=== PATIENT | female | born 1960 | race Caucasian/White ===

== ENCOUNTER 2018-11-17 06:19 | Day surgery (SDC) | END 2018-11-17 10:39 | disposition home or self-care (01) ==

== ENCOUNTER 2019-02-13 05:26 | Day surgery (SDC) | payer OTHER ==
[2019-02-12 11:38] VITALS: Ht 160 cm; Wt 69.3 kg
--- NOTE | 2019-02-12 14:34 | PREOPHP ---
DATE OF ADMISSION: 02/13/2019 HISTORY OF PRESENT ILLNESS: This 58-year-old patient is admitted for elective cataract surgery of th e right eye. The patient has had progressive deterioration in both eyes over the last years' time an d 3 months ago underwent cataract surgery of the left eye with excellent visual result. The patient' s systemic history is positive for insulin-dependent diabetes mellitus for the past 29 years, systemi c hypertension, and hypercholesterolemia. CURRENT MEDICATIONS INCLUDE: 1. Humalog and Lantus insulin. 2. Gabapentin. 3. Lisinopril. 4. Gemfibrozil. 5. Amlodipine. 6. Atorvastatin. ALLERGIES: PATIENT IS ALLERGIC TO LATEX, but no medication. PHYSICAL EXAMINATION: The visual acuity with correction is 20/30 in the right eye and 20/80 in the l eft eye. Slit lamp examination reveals an anterior cortical nuclear sclerotic and posterior subcapsu lar cataract in the right eye. The left eye has a posterior chamber intraocular lens in appropriate position. Applanation tonometry is 16 mmHg. Examination of the retina reveals the presence of backg round diabetic retinopathy, but no diabetic neovascularization present. DIAGNOSIS: Posterior subcapsular cataract, right eye. PLAN: Cataract extraction with lens implant, right eye. The risks and alternatives to the surgery a s well as the potential flare up of the diabetic retinopathy have been discussed with the patient and patient has opted to proceed with surgery in hopes of improving visual acuity leading to greater alee lity to perform activities of daily living. Dictated By: TOÑITO BREWSTER/SANDHYA Conf#: [id number] DID#: [id number]
[~2019-02-13] VITALS: Ht 160 cm; Wt 69.3 kg
[2019-02-13] VITALS (9 sets, daily range): BP systolic 120–151; BP diastolic 61–72; PULSE 80–86; RESP 11–20
[~2019-02-13 05:26] MED LIST: ATOR10TA65 PO; FER325 PO; GABA-526 PO; GEMF600T8 PO; LANT3I SC; LISI-471 PO
[2019-02-13] MEDS ORDERED: TROPICAMIDE 1% 15 ML OPH OPER SCH (06:00)
[2019-02-13] MEDS ORDERED: SOD CHLORIDE 0.9% 1,000 ML IV SCH (06:00)
[2019-02-13] MEDS ORDERED: CYCLOPENTOLATE/PHENYLEPH 2 ML OPH OPER SCH (06:00)
[2019-02-13] MEDS ORDERED: MOXIFLOXACIN 0.5% 3 ML OPH OPER SCH (06:00)
[2019-02-13] MEDS ORDERED: DICLOFENAC 0.1% 2.5 ML OPH OPER SCH (06:00)
[2019-02-13] MEDS ORDERED: CEFAZOLIN 1 GM INJ ONE (06:48)
[2019-02-13] MEDS ORDERED: DEXAMETHASONE 4 MG/ML 1 ML INJ ONE (06:49)
[2019-02-13] MEDS ORDERED: LIDOCAINE 4% (MPF) 5 ML INJ ONE ×2 (06:49→08:23)
[2019-02-13] MEDS ORDERED: CARBACHOL 0.01% 1.5 ML OPH INJ ONE (06:49)
[2019-02-13] MEDS ORDERED: TETRACAINE 0.5% 4 ML OPH ONE (06:49)
[2019-02-13] MEDS ORDERED: GENTAMICIN 80 MG INJ ONE (06:49)
[2019-02-13] MEDS ORDERED: EPINEPHrine 1 MG INJ ONE (06:50)
[2019-02-13] MEDS ORDERED: INSU100C SQ (07:04)
[2019-02-13] MEDS ORDERED: AMLO-147 PO (07:04)
[2019-02-13] MEDS ORDERED: GLIP-160 PO (07:04)
--- NOTE | 2019-02-13 07:17 | PREAC ---
Date/Time of Note Date/Time of Note DATE: 02/13/19 TIME: 07:17 Anesthesia Eval and Record Evaluation Time Pre-Procedure Interview DATE: 02/13/19 TIME: 07:17 Age 58 Sex female NPO: 8 hrs Preoperative diagnosis Right eye cataract Planned procedure Cataract extraction with IOL implant Past Medical History Past Medical History: Includes Cardio: HTN, Dyslipidemia Endo: Diabetes Surgery & Anesthesia Issues No known issue Meds Anticoagulation: No Beta Christoph within 24 hr: No Reason Beta Christoph not given: Pt. not on B-Christoph Reported Medications Glipizide XL* (Glipizide XL*) 5 Mg Tabsr, 10 MG PO DAILY, TAB 02/13/19 Insulin Lispro (Humalog) 100 Unit/1 Ml Cartridge, 6 UNIT SQ AC MEALS, EA 02/13/19 Amlodipine Besylate* (Amlodipine Besylate*) 10 Mg Tablet, 10 MG PO DAILY, #30 TAB 02/13/19 Atorvastatin Calcium (Atorvastatin Calcium) 10 Mg Tablet, 10 MG PO QHS, #30 TAB 11/17/18 Ferrous Sulfate* (Ferrous Sulfate*) 325 Mg Tabec, 325 MG PO DAILY, TAB 11/17/18 Gemfibrozil* (Gemfibrozil*) 600 Mg Tablet, 600 MG PO BID, TAB 11/17/18 Insulin Glargine* (Lantus*) 100 Unit/Ml Soln, 30 UNIT SC QHS, #1 VIAL 11/17/18 Gabapentin* (Gabapentin*) 600 Mg Tablet, 600 MG PO BID, #60 TAB 11/17/18 Lisinopril* (Lisinopril*) 20 Mg Tablet, 20 MG PO DAILY, #30 TAB 11/17/18 Current Medications Diclofenac Sodium (Voltaren 0.1%) 1 drop Q5 MIN X 3 OPER Last administered on 02/13/19at 06:12; Admin Dose 1 DROP; Start 02/13/19 at 06:00 Tropicamide (Mydriacyl 1%) 1 drop Q5 MIN X3 OPER Last administered on 02/13/19at 06:12; Admin Dose 1 DROP; Start 02/13/19 at 06:00 Moxifloxacin HCl (Vigamox) 1 drop Q5 MIN X 3 OPER Last administered on 02/13/19at 06:12; Admin Dose 1 DROP; Start 02/13/19 at 06:00 Cyclopentolate/ Phenylephrine (Cyclomydril Oph 2 ml) 1 drop Q5 MIN X 3 OPER Last administered on 02/13/19at 06:13; Admin Dose 1 DROP; Start 02/13/19 at 06:00 Sodium Chloride 1,000 ml @ 25 mls/hr Q24H IV Last administered on 02/13/19at 06:12; Admin Dose 25 MLS/HR; Start 02/13/19 at 06:00 Meds reviewed: Yes Allergies Coded Allergies: latex (Verified Allergy, Severe, LIPS, EARS, THROAT SWELLING, 11/17/18) Allergies Reviewed: Yes Labs/Studies Labs Reviewed: Reviewed by anesthesiologist test: N/A Pre-procedure Exam Last vitals Vital Signs Date Temp Pulse Resp B/P (MAP) Pulse Ox O2 O2 Flow FiO2 Time Delivery Rate 02/13/19 98.1 86 20 151/72 98 Room Air 06:22 (98) Airway: Adequate mouth opening Mallampati: Mallampati I Teeth: Normal Lung: Normal Heart: Normal ASA Physical Status ASA physical status: 3 Emergency: None Planned Anesthetic General/MAC: MAC Planned Pain Management Parenteral pain med Pre-operative Attestations Prior to commencing anesthesia and surgery, the patient was re-evaluated, there was verification of: *The patient's identity *The results of appropriate recent lab work and preoperative vital signs *The above evaluation not changing prior to induction *Anesthetic plan, risk benefits, alternative and complications discussed with patient/family; questions answered; patient/family understands, accepts and wishes to proceed. HONEY WEBER MD Feb 13, 2019 07:17
[2019-02-13] MEDS ORDERED: PROPOFOL 20 ML ONE (07:32)
[2019-02-13] MEDS ORDERED: LABETALOL HCL 20MG INJ ONE (08:06)
[2019-02-13] MEDS ORDERED: NA HYALURONATE/CHONDROITIN 0.5 ML SYG RIGHT EYE ONE (08:11)
[2019-02-13] MEDS ORDERED: NA HYALURONATE/CHONDROITIN 0.5 ML SYG ONE (08:23)
--- NOTE | 2019-02-13 08:24 | SIPON ---
Date/Time of Note Date/Time of Note DATE: 02/13/19 TIME: 08:23 Operative Report Preoperative Diagnosis Posterior subcapsular cataract od Postoperative Diagnosis same Operation/Procedure Performed cataract extraction with lens implant od Surgeon Toñito Sellers corporate administrative assistant none Anesthesia: MAC Estimated blood loss: none Transfusion Required none Specimen none Grafts/Implants posterior chamber lens implant Complications none TOÑITO SELLERS MD Feb 13, 2019 08:24
[2019-02-13] MEDS ORDERED: OXYCODONE/ACETAMINOPHEN (5/325) TAB PO PRN ×2 (08:30)
[2019-02-13] MEDS ORDERED: EPHEDrine SULFATE 50 MG/5 ML SYG IV PRN (08:30)
[2019-02-13] MEDS ORDERED: LABETALOL HCL 20MG INJ IV PRN (08:30)
[2019-02-13] MEDS ORDERED: METOCLOPRAMIDE 10 MG INJ IV PRN (08:30)
[2019-02-13] MEDS ORDERED: DIPHENHYDRAMINE 50 MG INJ IV PRN (08:30)
[2019-02-13] MEDS ORDERED: ONDANSETRON 4 MG INJ IV PRN (08:30)
[2019-02-13] MEDS ORDERED: hydrALAzine 20 MG INJ IV PRN (08:30)
[2019-02-13] MEDS ORDERED: MIDAZOLAM 1 MG/ML 2 ML INJ IV PRN (08:30)
[2019-02-13] MEDS ORDERED: MEPERIDINE 25 MG INJ IV PRN (08:30)
--- NOTE | 2019-02-13 08:45 | OPR ---
DATE OF OPERATION: 02/13/2019 PREOPERATIVE DIAGNOSIS: Posterior subcapsular cataract, right eye. POSTOPERATIVE DIAGNOSIS: Posterior subcapsular cataract, right eye. OPERATION PERFORMED: Cataract extraction with lens implant, right eye. SURGEON: Toñito Reid MD. DESCRIPTION OF OPERATION: Dr. Adame PROCEDURE: The patient was brought to the operating room and placed on the table with an IV in place and the patient attached to an electronic device monitor. Oxygen was given via face mask. After some intravenous sedation was administered, local anesthesia was given using Xylocaine 2% with epinephrine, mixed with Marcaine 0.5%. This was given in a lid block and retrobulbar injection. The p atient was then prepped and draped in the usual sterile manner. A wire lid speculum was inserted between the lids of the right eye. A Superblade was used to enter th e anterior chamber at the corneoscleral limbus at the 10:30 o'clock position. A separate incision was made using a 3.0-mm keratome which entered the corneoscleral junction at the 12 o'clock position. Th rough this 3-mm opening, an irrigating cystotome was introduced into the anterior chamber. The chambe r was filled with Viscoat and an anterior capsulotomy was performed. Balanced salt solution was then used for hydrodissection of the lens. A phacoemulsification handpiece was then brought into the fiel d and introduced into the anterior chamber. The lens nucleus was emulsified using a deep groove and c racking the nucleus into quadrants. Following this, each quadrant was aspirated and emulsified at the pupillary margin. After this was completed, the irrigation/aspiration handpiece was brought to the field, introduced in to the posterior chamber, and the lens cortical material was removed. When this was completed, additi onal Viscoat was injected into the anterior and posterior chambers. The 3-mm opening had its internal lips enlarged, and then the posterior chamber intraocular lens igor uring 22.0 diopters ([employer] Model LI61A)) was then injected into the posterior c hamber using the lens injector system. After the leading haptic was introduced into the capsular bag and the lens optic was present in the center of the eye, the injector was removed and the trailing calzada ptic was grasped with non-toothed forceps and introduced into the capsular fold superiorly. A Sinskey hook was then used to rotate the intraocular lens so that the lips were oriented in the horizontal m eridian. One 10-0 nylon suture was placed across the wound. Prior to tying, the irrigation/aspiration handpiece was reintroduced into the anterior chamber to rem ove the Viscoat. Miochol was instilled to constrict the pupil, and then the 10-0 nylon suture was tie d. The ends were cut short and then the knot was buried. Then, 0.5 mL of dexamethasone and 0.5 mL of Ancef were injected into the sub-Tenon space in the infer ior fornix. Ciloxan drops were then placed on the surface of the eye. The speculum was removed and a patch was applied. The patient then left the operating room in satisfactory condition. Dictated By: TOÑITO BREWSTER/SANDHYA Conf#: [id number] DID#: [id number]
--- NOTE | 2019-02-13 09:03 | PAC ---
Date/Time of Note Date/Time of Note DATE: 02/13/19 TIME: 09:03 Post-Anesthesia Notes Post-Anesthesia Note Last documented vital signs Vital Signs Date Temp Pulse Resp B/P (MAP) Pulse Ox O2 O2 Flow FiO2 Time Delivery Rate 02/13/19 99.2 08:58 02/13/19 83 15 138/68 93 Room Air 08:49 (91) Activity: WNL Respiratory function: WNL Cardiovascular function: WNL Mental status: Baseline Pain reasonably controlled: Yes Hydration appropriate: Yes Nausea/Vomiting absent: Yes HONEY WEBER MD Feb 13, 2019 09:03
== END 2019-02-13 09:50 | disposition home or self-care (01) ==
LOC: SDS 05:26
PROVIDERS: ATTEND Ophthalmology
DX: H25.041 Posterior subcapsular polar age-related cataract, right eye (principal); I10 Essential (primary) hypertension; E11.9 Type 2 diabetes mellitus without complications; E78.5 Hyperlipidemia, unspecified
CPT/HCPCS: 66984; 82962; J0171; J0690; J1100; J1580; J2405; V2632; Z7512; Z7610